=== PATIENT | female | born 1955 | race Caucasian/White ===

== ENCOUNTER 2021-07-04 10:18 | Outpatient (CLI) | payer MEDICARE | END 2021-07-04 10:19 | disposition home or self-care (01) | LOC: CSHMAMMO 10:18 | PROVIDERS: ATTEND Obstetrics & Gynecology | DX: Z13.820 Encounter for screening for osteoporosis (principal); M85.859 Other specified disorders of bone density and structure, unspecified thigh | CPT/HCPCS: 77080 ==

== ENCOUNTER 2021-07-11 09:47 | Outpatient (CLI) | payer MEDICARE | END 2021-07-11 09:48 | disposition home or self-care (01) | LOC: CSHCT 09:47 | PROVIDERS: ATTEND Otolaryngology Otolaryngic Allergy | DX: J39.2 Other diseases of pharynx (principal) | CPT/HCPCS: 70491; 82565 ==

== ENCOUNTER 2022-06-12 14:21 | Outpatient (CLI) | payer MEDICARE | END 2022-06-12 14:22 | disposition home or self-care (01) | LOC: CSHMAMMO 14:21 | PROVIDERS: ATTEND Family Medicine | DX: Z12.31 Encounter for screening mammogram for malignant neoplasm of breast (principal); R92.1 Mammographic calcification found on diagnostic imaging of breast; Z91.89 Other specified personal risk factors, not elsewhere classified; Z80.3 Family history of malignant neoplasm of breast | CPT/HCPCS: 77063; 77067 ==

== ENCOUNTER 2024-06-30 14:33 | Outpatient (CLI) | payer MEDICARE | END 2024-06-30 14:34 | disposition home or self-care (01) | LOC: CSHMAMMO 14:33 | PROVIDERS: ATTEND Family Medicine | DX: Z12.31 Encounter for screening mammogram for malignant neoplasm of breast (principal); Z80.3 Family history of malignant neoplasm of breast; Z91.89 Other specified personal risk factors, not elsewhere classified | CPT/HCPCS: 77063; 77067 ==